=== PATIENT | male | born 1940 | race Caucasian/White ===

== ENCOUNTER → 2016-07-07 | Outpatient (CLI) | payer MEDICARE, MEDICAID ==
[~2016-07-07] MED LIST: /AMLO25TA PO; /CIPR75TA; /ESOM40CA; /LOR25TA PO; ACCO20TA4 PO; ACET-654 PO; ACET50TA PO; ACETAMINOPHEN OR; AMLO10TA2 PO; AMPI500C8 PO; ASPI81TA7 PO; ASPIRIN; AVODART; CIPR250T2 PO; CIPR500T19; COLA50CA3 PO; DOCU10ELUD PO; FERR325T PO; FERR325T3 PO; GLIP10TA6 PO; GLUC1000; HYDR-3713 PO; HYDROCODONE OR; ISON300T4 PO; ISOVUE-300 61% 50ML VIAL (Q9967) As Ordered ONE; LEVA250T PO; LEVA750T PO; LEVO125T3 PO; LEVO75TA PO; LIPI10TA PO; LISI10TA4; LORT5TAB PO; LOSA25TA8 PO; LOSA50TA20 PO; MOM30SS PO; NITROFURANTOIN (MACROBID) 100 MG CAP As Ordered ONE; ONGL10TA3 PO; PRAV40TA PO; PRIN10TA; PROC1INJ5 IM; RAPAFLO; RIFA300C3 PO; SAW PALMETTO; SERT-141 PO; SITA50TAB PO; SODIUM BICARBONATE 8.4% INJ 50MEQ 50 ML VIAL As Ordered ONE; SYNT25TA PO; TERA2CAP; TYLE325T5 PO; VITA100T; VITA250L PO; VITA500T3 PO; [UNRECOGNIZED DRUG - CODE] PO; [UNRECOGNIZED DRUG - CODE] PO; [UNRECOGNIZED DRUG - OTHER]; [UNRECOGNIZED DRUG - OTHER] PO; cyanocobalamin PO; vicodin
--- NOTE | 2016-07-07 12:50 | REPKIM ---
CLINICAL HISTORY: Patient with a history of genitourinary TB complication, s/p nephrectomy on the right, severe bladder contracture has a left nephrostomy urinary diversion tube. Patient c/o some pain or discomfort. No fever or chills. The nephrostomy catheter needs to be changed for routine maintenance. PROCEDURE: Left Nephrostomy Catheter Check and Change INTERVENTIONALIST: Vinh Livingston MD MEDICATIONS: Local Lidocaine, Macrobid EBL: 1 mL FLUORO TIME: 0.5 minutes CONTRAST: 10 mL Isovue 300 DEVICE USED: 10F Nephrostomy (Resolve) catheter Lot#[id number] Description of procedure: The risks, benefits, and alternatives of the procedure and associated intravenous sedation were discussed with the patient and informed written consent was obtained. The patient was brought to the interventional radiology suite where a timeout procedure was performed. The patient was placed in the prone position. The existing indwelling catheter and the area surrounding the insertion site were prepped and draped with standard technique. A sample of urine sent for c/s. Contrast was injected through the existing 10 F nephrostomy catheter and a nephrostogram was performed. This showed the catheter is patent with its tip in a satisfactory course and position. After local anesthetic was established, a guidewire was advanced through the existing drainage catheter into the renal pelvis. Catheter exchange was performed and a 10F nephrostomy catheter was then advanced over the guidewire. The guidewire was removed and the distal loop of the nephrostomy drainage catheter was formed and locked in the renal pelvis. Contrast was gently hand injected, confirming satisfactory drainage catheter positioning. The drainage catheter exit site was covered with a sterile dressing. The drainage catheter was flushed and connected to gravity drainage. The patient tolerated the procedure well with no immediate complications. This procedure was performed using fluoroscopy. Dr. Livingston was present. IMPRESSION: Successful left nephrostomy catheter change for maintenance as discussed above. cc: MD Kat Miller NP MTDD
== END | disposition home or self-care (01) ==
LOC: M IRPRO 09:56
DX: N32.89 Other specified disorders of bladder (principal)
CPT/HCPCS: 50435; 81001; 87088; 87186; C1729; C1769; Q9967

== ENCOUNTER → 2016-07-19 | Outpatient (REF) | payer MEDICARE, MEDICAID ==
[~2016-07-19] MED LIST changes: -ISOVUE-300 61% 50ML VIAL (Q9967) As Ordered ONE; -NITROFURANTOIN (MACROBID) 100 MG CAP As Ordered ONE; -SODIUM BICARBONATE 8.4% INJ 50MEQ 50 ML VIAL As Ordered ONE
[2016-07-19 12:16] LABS: ALBUMIN 3.4 GM/DL (3.2-5.2); ALKALINE PHOSPHATASE 77 U/L (45-117); ALT/SGPT 12 U/L (12-78); ANION GAP 12 MEQ/L (8-16); AST/SGOT 14 U/L (15-37); BILIRUBIN,TOTAL 0.6 MG/DL (0.2-1.0); BLOOD UREA NITROGEN 75 MG/DL (7-18); CALCIUM LEVEL 8.3 MG/DL (8.8-10.2); CARBON DIOXIDE LEVEL 21 MEQ/L (21-32); CHLORIDE LEVEL 105 MEQ/L (98-107); CHOLESTEROL LEVEL 112 MG/DL (<200); CREATININE FOR GFR 3.42 MG/DL (0.70-1.30); FREE T4 1.35 NG/DL (0.76-1.46); GLOMERULAR FILTRATION RATE 18.8 (>42); GLUCOSE, FASTING 315 MG/DL (83-110); POTASSIUM SERUM 4.5 MEQ/L (3.5-5.1); SODIUM LEVEL 138 MEQ/L (136-145); TOTAL PROTEIN 6.8 GM/DL (6.4-8.2); TRIGLYCERIDES LEVEL 188 MG/DL (<150)
== END ==
LOC: M SFHCPLAZ 09:22
PROVIDERS: ATTEND Nurse Practitioner Family
DX: E11.22 Type 2 diabetes mellitus with diabetic chronic kidney disease (principal); E03.9 Hypothyroidism, unspecified; E78.2 Mixed hyperlipidemia; Z12.5 Encounter for screening for malignant neoplasm of prostate
CPT/HCPCS: 36415; 80053; 80061; 82043; 83036; 84439; 84443; G0103

== ENCOUNTER 2016-08-30 11:47 | Emergency (ER) | payer MEDICARE, MEDICAID ==
[~2016-08-30] VITALS: Ht 172.7 cm; Wt 90.7 kg
[~2016-08-30 11:47] MED LIST changes: +SERT50TA PO
[2016-08-30] MEDS ORDERED: PROC1INJ2 (12:14)
[2016-08-30] MEDS ORDERED: HYDR12CA (12:14)
[2016-08-30] MEDS ORDERED: TOUJ1.2I (12:14)
[2016-08-30] MEDS ORDERED: BRIM1OPD (12:14)
[2016-08-30] MEDS ORDERED: BIMA01SOL (12:14)
[2016-08-30] MEDS ORDERED: CHLO125TA (12:14)
[2016-08-30] MEDS ORDERED: HYDR-4266 (12:14)
[2016-08-30] MEDS ORDERED: DOXA1TAB41 (12:14)
--- NOTE | 2016-08-30 13:54 | ED PDOC ---
Post-Departure Follow-Up PT AND GIRLFRIEND PRESENT TODAY COMPLAINING OF DECREASED URINE OUTPUT IN THE LEFT NEPHROSTOMY BAG YESTERDAY, WHICH INCREASED TODAY, BUT PT BEGAN URINATING OUT OF HIS PENIS YESTERDAY WITH URGENCY. STATES HE DOES NOT URINATE DUE TO KIDNEY FAILURE AND THE NEPHROSTOMY TUBE. PT STATES THIS TUBE GETS REPLACED EVERY MONTH BY DR. FRAGA, WHO IS CURRENTLY OUT OF THE OFFICE. SEES DR. ANTHONY FOR NEPHROLOGY, DR. SWANSON FOR UROLOGY AND DR. FORBES FOR INFECTIOUS DISEASE. PT STATES HAS HAD TB OF THE BLADDER AND WAS TREATED TO COMPLETION WITH DR. FORBES. HAD THE RIGHT KIDNEY REMOVED AND ONLY HAS THE LEFT KIDNEY WITH NEPHROSTOMY TUBE IN PLACE. GIRLFRIEND STATES PT REFUSED DIALYSIS, BUT HAS GOOD FOLLOW UP WITH HIS MANY SPECIALISTS. PT ALSO C/O PAIN IN THE GROIN OVER THE PAST 2 DAYS. MAIRA MEDRANO PA-C Aug 30, 2016 13:54
[2016-08-30 14:19] LABS: BASO % 0.4 % (0.0-1.0); EOS # 0.2 K/mm3 (0.0-0.50); EOS % 2.5 % (0.0-3.0); LARGE UNSTAINED CELL # 0.1 K/mm3 (0.0-0.4); LARGE UNSTAINED CELL % 1.4 % (0.0-4.0); LYMPH # 1.3 K/mm3 (1.5-4.5); LYMPH % 13.1 % (24.0-44.0); MEAN CORPUSCULAR HEMOGLOBIN 29.7 pg (27.0-33.0); MEAN CORPUSCULAR HGB CONC 32.3 g/dl (32.0-36.5); MONO # 0.5 K/mm3 (0.0-0.8); MONO % 5.5 % (0.0-5.0); NEUTROPHILS # 7.1 K/mm3 (1.8-7.7); NEUTROPHILS % 77.1 % (36.0-66.0); PLATELET COUNT, AUTOMATED 208 k/mm3 (150-450); RED CELL DISTRIBUTION WIDTH 13.9 % (11.5-14.5); WHITE BLOOD COUNT 9.2 K/mm3 (4.0-10.0)
--- NOTE | 2016-08-30 14:23 | REP ---
CT ABDOMEN PELVIS WITHOUT CONTRAST: 08/30/2016 COMPARISON: 10/17/2015, 02/04/2014 CT. CLINICAL HISTORY: Left nephrostomy tube, decreased urine output. FINDINGS: Noncontrast images of the abdomen and pelvis with coronal and sagittal reconstructions. CT ABDOMEN: Lung bases remain clear with some minor fibrotic change inferior lingular segment anterior left lung base. Heart mildly enlarged with left atrial ventricular enlargement. Coronary calcifications. No pericardial thickening or effusion. No definite hiatal hernia. Liver, spleen, adrenal glands and pancreas are without acute finding. Gallbladder shows an oval rim calcified gallstone 3.9 x 2.8 cm. No biliary dilatation in the liver or extrahepatic course. The aorta has atherosclerotic calcification without aneurysm. There is no periaortic other retroperitoneal pathologic sized lymphadenopathy. The patient has had a right nephrectomy. The right colon fills the right renal fossa. The left kidney shows a pigtail stent in the lower pole hernandez communicating to the extrarenal pelvis. There is hydronephrosis and hydroureter all the way to the left UVJ. AP extrarenal pelvis diameter 4.2 cm, now and in the September 2015 exam, 4.5 cm perinephric stranding noted similar the previous study. No definite stone in the collecting system or ureter on that left side. Small bowel loops are without abnormality. Nephrostomy tube appears intact without disruption. Lung window review shows no perforation or free air in the abdomen or pelvis on any slice. Degenerative changes in the lumbar and lower thoracic spine are mild with some hypertrophic facet change and no spondylolisthesis. There are marginal osteophytes at many levels particularly in the thoracic spine but no compression deformity. Visualized ribs intact. CT PELVIS: Sacrum, SI joints and the iliac bones intact. Bilateral hip joint arthritis, mild. No hip fracture. Pubic rami and symphysis pubis intact. Iliac arteries also show atherosclerotic calcifications on aneurysm. Small bowel loops intact. There is no ventral or inguinal hernia. The omental fat distends the right inguinal canal but no bowel herniation. No inguinal adenopathy or mass. Distal left colon, sigmoid and rectum with a few scattered diverticula without signs of diverticulitis or colitis. IMPRESSION: 1. Nephrostomy catheter in lower pole calyx left kidney with hydronephrosis and hydroureter to the level of the bladder. The AP diameter of the external pelvis is 4.5 cm. On the September 2015 CT, it was 4.2 cm. There is only marginally greater hydronephrosis and hydroureter. Whether the tube is partially occluded by debris is unknown. That would require nephrostogram injection. 2. Atherosclerotic calcifications of the aorta and branches, prior right nephrectomy and a 3.9 x 2.8 cm rim calcified gallstone visible. No other significant findings or interval change. Signed by Sidney Ag MD 08/30/2016 03:32 P
[2016-08-30 14:29] LABS: CALCIUM LEVEL 8.7 MG/DL (8.8-10.2); CREATININE FOR GFR 3.94 MG/DL (0.70-1.30); GLOMERULAR FILTRATION RATE 15.9 (>42); POTASSIUM SERUM 4.5 MEQ/L (3.5-5.1)
[2016-08-30] MEDS ORDERED: BACT800T5 PO (16:13)
[2016-08-30 16:29] VITALS: BP 156/65
== END 2016-08-30 16:30 | disposition home or self-care (01) ==
LOC: M ED 14:12
DX: N39.0 Urinary tract infection, site not specified (principal); N99.528 Other complication of incontinent external stoma of urinary tract; S50.852A Superficial foreign body of left forearm, initial encounter; X58.XXXA Exposure to other specified factors, initial encounter; Y92.89 Other specified places as the place of occurrence of the external cause; Y93.89 Activity, other specified; Y99.8 Other external cause status; E11.9 Type 2 diabetes mellitus without complications; I10 Essential (primary) hypertension; N19 Unspecified kidney failure; F33.9 Major depressive disorder, recurrent, unspecified; Z86.73 Personal history of transient ischemic attack (TIA), and cerebral infarction without residual deficits; F03.90 Unspecified dementia, unspecified severity, without behavioral disturbance, psychotic disturbance, mood disturbance, and anxiety; Z86.69 Personal history of other diseases of the nervous system and sense organs; Z79.899 Other long term (current) drug therapy; Z91.018 Allergy to other foods

== ENCOUNTER → 2016-10-02 | Outpatient (CLI) | payer MEDICARE, MEDICAID ==
[~2016-10-02] MED LIST changes: +BACT800T5 PO; +BIMA01SOL; +BRIM1OPD; +CHLO125TA; +CIPROFLOXACIN 500 MG TAB As Ordered ONE; +DOXA1TAB41; +HYDR-4266; +HYDR12CA; +ISOVUE-300 61% 50ML VIAL (Q9967) As Ordered ONE; +PROC1INJ2; +TOUJ1.2I
--- NOTE | 2016-10-02 17:29 | REPKIM ---
CLINICAL HISTORY: Patient with a history of genitourinary TB complication, s/p nephrectomy on the right, severe bladder contracture, renal insufficiency has a left nephrostomy urinary diversion tube. Patient presents because the left sided nephrostomy tube was inadvertently pulled out. PROCEDURE: Left Nephrostomy Catheter Replacement INTERVENTIONALIST: Vinh Livingston MD MEDICATIONS: Local Lidocaine, Cipro EBL: 1 mL FLUORO TIME: 0.7 minutes CONTRAST: 14 mL Isovue 300 DEVICE USED: 10F Nephrostomy (Resolve) catheter Lot#[id number] Description of procedure: The risks, benefits, and alternatives of the procedure and associated intravenous sedation were discussed with the patient and informed written consent was obtained. The patient was brought to the interventional radiology suite where a timeout procedure was performed. The patient was placed in the prone position. A Kumpe catheter was placed into the cutaneous tract. Contrast was injected. A tract into the collecting system was identified. The tract was successfully traversed with a guidewire and the Kumpe catheter advanced into the renal pelvis. Contrast injection showed hydronephrosis. Catheter exchange was performed and a 10F nephrostomy catheter was then advanced over the guidewire. The guidewire was removed and the distal loop of the nephrostomy drainage catheter was formed and locked in the renal pelvis. Contrast was gently hand injected, confirming satisfactory drainage catheter positioning. The drainage catheter exit site was covered with a sterile dressing. The drainage catheter was flushed and connected to gravity drainage. The patient tolerated the procedure well with no immediate complications. This procedure was performed using fluoroscopy. Dr. Livingston was present. IMPRESSION: Successful replacement of the left nephrostomy catheter as discussed above. cc: MD Kat Miller NP MTDD
== END | disposition home or self-care (01) ==
LOC: M IRPRO 14:11
DX: Z43.6 Encounter for attention to other artificial openings of urinary tract (principal); N28.9 Disorder of kidney and ureter, unspecified; N32.89 Other specified disorders of bladder
CPT/HCPCS: 50435; C1729; C1769; C1887; Q9967

== ENCOUNTER → 2016-11-30 | Outpatient (REF) | payer MEDICARE, MEDICAID ==
[~2016-11-30] MED LIST changes: -CIPROFLOXACIN 500 MG TAB As Ordered ONE; +HYDR-3910; -HYDR-4266; -ISOVUE-300 61% 50ML VIAL (Q9967) As Ordered ONE; +LEVA1TAB PO; -LEVA250T PO; -LEVA750T PO; +LEVA750T7 PO; -LEVO125T3 PO; +LEVO125T4 PO
[2016-11-30 18:57] LABS: BASO % 0.5 % (0.0-1.0); EOS # 0.2 K/mm3 (0.0-0.50); LARGE UNSTAINED CELL # 0.1 K/mm3 (0.0-0.4); LARGE UNSTAINED CELL % 1.4 % (0.0-4.0); LYMPH # 1.4 K/mm3 (1.5-4.5); MEAN CORPUSCULAR HEMOGLOBIN 30.2 pg (27.0-33.0); MEAN CORPUSCULAR HGB CONC 32.4 g/dl (32.0-36.5); MEAN CORPUSCULAR VOLUME 93.2 fl (80.0-96.0); MONO # 0.6 K/mm3 (0.0-0.8); MONO % 7.1 % (0.0-5.0); NEUTROPHILS # 5.9 K/mm3 (1.8-7.7); NEUTROPHILS % 72.1 % (36.0-66.0); PLATELET COUNT, AUTOMATED 213 k/mm3 (150-450); RED CELL DISTRIBUTION WIDTH 14.9 % (11.5-14.5); WHITE BLOOD COUNT 8.2 K/mm3 (4.0-10.0)
== END ==
LOC: M LAB REF 16:54
PROVIDERS: ATTEND Internal Medicine Nephrology
DX: N18.4 Chronic kidney disease, stage 4 (severe) (principal); D63.1 Anemia in chronic kidney disease

== ENCOUNTER → 2016-12-04 | Outpatient (CLI) | payer MEDICARE, MEDICAID ==
[~2016-12-04] MED LIST changes: +CIPROFLOXACIN 500 MG TAB As Ordered ONE; +ISOVUE-300 61% 50ML VIAL (Q9967) As Ordered ONE
--- NOTE | 2016-12-04 16:18 | REP ---
LEFT NEPHROSTOMY CATHETER REPLACEMENT: The procedure was performed under the direct supervision of Dr. Kim. The risks and benefits of the procedure were explained to the patient and informed consent was obtained. A 50/50 solution of Isovue-300 and sterile saline was injected into the catheter. Images demonstrate the pigtail to be in the renal pelvis. The 2-0 Prolene suture was released. A 0.035 guidewire was inserted into the existing 10 Icelandic resolve catheter. The catheter was removed over the guidewire. A new 10 Icelandic resolve catheter was inserted over the guidewire. The guidewire was then removed. Contrast was again injected and images demonstrate good catheter position. The pigtail of the catheter is located in the renal pelvis. The catheter was affixed to the skin using 2-0 Prolene suture. The catheter was connected to a gravity drainage bag. A total of 5 mL of Isovue-300 was utilized for this procedure. The patient tolerated the procedure well and there were no immediate complications. After the appropriate amount of monitored convalescence. The patient was discharged from the department. 0.9 minutes of fluoroscopic time was utilized for this procedure. Reviewed by FERDINAND Bran 12/04/2016 04:41 PEdited and Signed by David Kim MD 12/05/2016 04:00 P
== END | disposition home or self-care (01) ==
LOC: M RADPRO 09:58
PROVIDERS: ATTEND Radiology Diagnostic Radiology
DX: N32.89 Other specified disorders of bladder (principal); N18.4 Chronic kidney disease, stage 4 (severe); E11.22 Type 2 diabetes mellitus with diabetic chronic kidney disease; I12.9 Hypertensive chronic kidney disease with stage 1 through stage 4 chronic kidney disease, or unspecified chronic kidney disease; E78.5 Hyperlipidemia, unspecified; J45.909 Unspecified asthma, uncomplicated; D63.8 Anemia in other chronic diseases classified elsewhere; M19.90 Unspecified osteoarthritis, unspecified site; E03.9 Hypothyroidism, unspecified; N40.0 Benign prostatic hyperplasia without lower urinary tract symptoms; K21.9 Gastro-esophageal reflux disease without esophagitis; F33.9 Major depressive disorder, recurrent, unspecified; Z91.02 Food additives allergy status; Z79.4 Long term (current) use of insulin; Z79.899 Other long term (current) drug therapy
CPT/HCPCS: 50435; C1729; C1769; Q9967

== ENCOUNTER → 2016-12-28 | Outpatient (REF) | payer MEDICARE, MEDICAID ==
[~2016-12-28] MED LIST changes: -CIPROFLOXACIN 500 MG TAB As Ordered ONE; -ISOVUE-300 61% 50ML VIAL (Q9967) As Ordered ONE
[2016-12-28 17:40] LABS: BASO # 0.1 K/mm3 (0.0-0.2); EOS # 0.2 K/mm3 (0.0-0.50); EOS % 2.6 % (0.0-3.0); LARGE UNSTAINED CELL # 0.1 K/mm3 (0.0-0.4); LYMPH % 12.7 % (24.0-44.0); MEAN CORPUSCULAR HEMOGLOBIN 30.2 pg (27.0-33.0); MEAN CORPUSCULAR VOLUME 94.3 fl (80.0-96.0); MONO # 0.4 K/mm3 (0.0-0.8); MONO % 5.9 % (0.0-5.0); NEUTROPHILS # 5.6 K/mm3 (1.8-7.7); NEUTROPHILS % 76.8 % (36.0-66.0); PLATELET COUNT, AUTOMATED 195 k/mm3 (150-450); RED CELL DISTRIBUTION WIDTH 15.2 % (11.5-14.5); WHITE BLOOD COUNT 7.3 K/mm3 (4.0-10.0)
== END ==
LOC: M LAB REF 14:51
PROVIDERS: ATTEND Internal Medicine Nephrology
DX: N18.4 Chronic kidney disease, stage 4 (severe) (principal); D63.1 Anemia in chronic kidney disease

== ENCOUNTER → 2017-01-11 | Outpatient (REF) | payer MEDICARE, MEDICAID ==
[2017-01-11 18:49] LABS: MEAN CORPUSCULAR HEMOGLOBIN 30.8 pg (27.0-33.0); MEAN CORPUSCULAR HGB CONC 32.8 g/dl (32.0-36.5); MEAN CORPUSCULAR VOLUME 93.8 fl (80.0-96.0); RED CELL DISTRIBUTION WIDTH 14.5 % (11.5-14.5); WHITE BLOOD COUNT 8.8 K/mm3 (4.0-10.0)
[2017-01-11 19:07] LABS: ALBUMIN 3.5 GM/DL (3.2-5.2); BILIRUBIN,TOTAL 0.4 MG/DL (0.2-1.0); CALCIUM LEVEL 8.5 MG/DL (8.8-10.2); CREATININE FOR GFR 3.8 MG/DL (0.70-1.30); FREE T4 1.25 NG/DL (0.76-1.46); GLOMERULAR FILTRATION RATE 16.6 (>42)
== END ==
LOC: M SFHCPLAZ 15:57
PROVIDERS: ATTEND Urology
DX: I12.9 Hypertensive chronic kidney disease with stage 1 through stage 4 chronic kidney disease, or unspecified chronic kidney disease (principal); E11.22 Type 2 diabetes mellitus with diabetic chronic kidney disease; E03.9 Hypothyroidism, unspecified
CPT/HCPCS: 36415; 80053; 83036; 84439; 84443; 85027; G0463

== ENCOUNTER → 2017-01-15 | Outpatient (CLI) | payer MEDICARE, MEDICAID ==
[~2017-01-15] MED LIST changes: +CIPROFLOXACIN 500 MG TAB As Ordered ONE; +ISOVUE-300 61% 50ML VIAL (Q9967) As Ordered ONE; +LIDOCAINE 2% MDV 20 ML VIAL As Ordered ONE
--- NOTE | 2017-01-15 18:57 | REP ---
The procedure was performed under the direct supervision of Dr. Kim CLINICAL HISTORY: Severe contracted bladder/left hydronephrosis PROCEDURE: Left nephrostomy catheter placement Medications: Cipro 250 mg EBL: Less than 1 cc FLUORO TIME: 0.6 minutesCONTRAST: 6 ml Isovue 300DEVICE USED: 10 F Nephrostomy (Resolve) catheter Lot# [id number] The risks and benefits of the procedure were explained to the patient and informed consent was obtained. The patient was brought into the interventional radiology suite. A time of procedure was performed. The patient was placed in the prone position. The existing indwelling catheter and the area surrounding the insertion site were prepped and draped in a sterile fashion. Contrast was injected through the existing 10 F Nephrostomy catheter. Images demonstrate good catheter position. The existing catheter was unlocked and removed over the guide wire. A new 10 F Resolve catheter was advanced over the guide wire. The guidewire was removed and the distal loop of the nephrostomy drainage catheter was formed and locked in the renal pelvis. Contrast was injected, confirming satisfactory drainage catheter positioned. The catheter was secured to the skin using 2.0 silk suture. The drainage catheter exit site was covered with sterile dressing. The nephrostomy drainage catheter was flushed and connected to gravity drainage bag. The patient tolerated the procedure well and there were no immediate complications. This procedure was performed using fluoroscopy. Impression: Successful exchange of the left nephrostomy urinary diversion tube as discussed above. Plan: Routine catheter exchange in approximately 10-12 weeks or earlier if signs of tube dysfunction were to occur. Reviewed by FERDINAND Bran 01/15/2017 05:13 PSigned by David Kim MD 01/15/2017 06:48 P
== END ==
LOC: M RADPRO 11:33
PROVIDERS: ATTEND Radiology Diagnostic Radiology
DX: N13.30 Unspecified hydronephrosis (principal); N32.89 Other specified disorders of bladder; Z91.02 Food additives allergy status; Z79.899 Other long term (current) drug therapy
CPT/HCPCS: 50435; 75984; C1729; C1769; Q9967

== ENCOUNTER → 2017-01-25 | Outpatient (REF) | payer MEDICARE, MEDICAID ==
[~2017-01-25] MED LIST changes: -CIPROFLOXACIN 500 MG TAB As Ordered ONE; -ISOVUE-300 61% 50ML VIAL (Q9967) As Ordered ONE; -LIDOCAINE 2% MDV 20 ML VIAL As Ordered ONE
[2017-01-25 19:29] LABS: BASO # 0.1 K/mm3 (0.0-0.2); BASO % 0.9 % (0.0-1.0); EOS # 0.3 K/mm3 (0.0-0.50); EOS % 3.5 % (0.0-3.0); LARGE UNSTAINED CELL # 0.1 K/mm3 (0.0-0.4); LARGE UNSTAINED CELL % 1.1 % (0.0-4.0); LYMPH % 11.6 % (24.0-44.0); MEAN CORPUSCULAR HEMOGLOBIN 30.3 pg (27.0-33.0); MEAN CORPUSCULAR HGB CONC 31.7 g/dl (32.0-36.5); MEAN CORPUSCULAR VOLUME 95.4 fl (80.0-96.0); MONO # 0.5 K/mm3 (0.0-0.8); MONO % 6.6 % (0.0-5.0); NEUTROPHILS # 5.8 K/mm3 (1.8-7.7); NEUTROPHILS % 76.2 % (36.0-66.0); PLATELET COUNT, AUTOMATED 200 k/mm3 (150-450); RED CELL DISTRIBUTION WIDTH 14.5 % (11.5-14.5); WHITE BLOOD COUNT 7.6 K/mm3 (4.0-10.0)
== END ==
LOC: M LAB REF 12:25
PROVIDERS: ATTEND Internal Medicine Nephrology
DX: N18.4 Chronic kidney disease, stage 4 (severe) (principal); D63.1 Anemia in chronic kidney disease

== ENCOUNTER → 2017-02-22 | Outpatient (REF) | payer MEDICARE, MEDICAID ==
[2017-02-22 20:03] LABS: MEAN CORPUSCULAR HEMOGLOBIN 30.5 pg (27.0-33.0); MEAN CORPUSCULAR HGB CONC 32.7 g/dl (32.0-36.5); MEAN CORPUSCULAR VOLUME 93.3 fl (80.0-96.0); RED CELL DISTRIBUTION WIDTH 14.2 % (11.5-14.5); WHITE BLOOD COUNT 8.5 10^3/uL (4.0-10.0)
== END ==
LOC: M LAB REF 17:31
PROVIDERS: ATTEND Internal Medicine Nephrology
DX: N18.4 Chronic kidney disease, stage 4 (severe) (principal); D63.1 Anemia in chronic kidney disease; Z90.5 Acquired absence of kidney

== ENCOUNTER → 2017-03-29 | Outpatient (REF) | payer MEDICARE, MEDICAID ==
[2017-03-29 19:03] LABS: PERCENT SATURATION 33.9 % (19.7-50.0)
== END ==
LOC: M LAB REF 17:16
PROVIDERS: ATTEND Internal Medicine Nephrology
DX: N18.4 Chronic kidney disease, stage 4 (severe) (principal); D64.9 Anemia, unspecified; Z90.5 Acquired absence of kidney

== ENCOUNTER 2017-05-09 23:50 | Inpatient (IN) | payer MEDICARE, MEDICAID ==
[~2017-05-09] VITALS: Ht 172.7 cm; Wt 97.1 kg
[~2017-05-09 23:50] MED LIST changes: -HYDR12CA; +HYDR12CA PO
[2017-05-10] VITALS (8 sets, daily range): BP systolic 120–210; BP diastolic 60–95
[2017-05-10] MEDS ORDERED: hydrALAZINE INJ 20 MG/ML VIAL IV ONE (00:30)
[2017-05-10 00:34] LABS: BASO # 0.1 10^3/uL (0.0-0.2); BASO % 1.3 % (0.0-1.0); EOS # 0.6 10^3/uL (0.0-0.50); EOS % 7.7 % (0.0-3.0); IMMATURE GRANULOCYTE % 2.3 % (0-0); LYMPH # 1.4 10^3/uL (1.5-4.5); LYMPH % 16.6 % (24.0-44.0); MEAN CORPUSCULAR HEMOGLOBIN 29.6 pg (27.0-33.0); MEAN CORPUSCULAR HGB CONC 33.2 g/dl (32.0-36.5); MONO # 0.9 10^3/uL (0.0-0.8); MONO % 10.6 % (0.0-5.0); NEUTROPHILS % 61.5 % (36.0-66.0); PLATELET COUNT, AUTOMATED 196 10^3/uL (150-450); RED CELL DISTRIBUTION WIDTH 13.4 % (11.5-14.5); WHITE BLOOD COUNT 8.2 10^3/uL (4.0-10.0)
[2017-05-10 00:51] LABS: CALCIUM LEVEL 8.1 MG/DL (8.8-10.2); CREATININE FOR GFR 3.45 MG/DL (0.70-1.30); FREE T4 0.77 NG/DL (0.76-1.46); GLOMERULAR FILTRATION RATE 18.5 (>42); POTASSIUM SERUM 4.2 MEQ/L (3.5-5.1)
[2017-05-10] MEDS ORDERED: HumuLIN R (REGULAR) INSULIN (NovoLIN R) **100U/ML** PER UNIT IV ONE (01:15)
[2017-05-10] MEDS ORDERED: TUMS500C PO (01:43)
[2017-05-10] MEDS ORDERED: HYDR100T PO (01:43)
[2017-05-10] MEDS ORDERED: amLODIPine 5 MG TAB PO ONE (02:30)
[2017-05-10] MEDS ORDERED: ONDANSETRON 4MG/2ML VIAL (J2405) IV PRN (05:15)
[2017-05-10] MEDS ORDERED: GLUCAGON FOR INJ 1 MG VIAL (J1610) SC PRN (05:30)
[2017-05-10] MEDS ORDERED: GLUCOSE 4 GM CHEW TABLET PO PRN (05:30)
[2017-05-10] MEDS ORDERED: DEXTROSE 50% 50 ML SYRINGE IV PRN (05:30)
[2017-05-10] MEDS ORDERED: NITROGLYCERIN 2% OINT 1 GM *U/D* PKT TOP ONE (05:30)
--- NOTE | 2017-05-10 05:59 | ECGEPIP ---
Stationary ECG Study [facility] - ED Test Date: 2017-05-10 Pat Name: RACHEL JACKSON Department: Room: - Gender: M Copy Technician: josh : 1940 Requested By: ARMOND Sousa Order Number: [id number] Reading MD: Antony Resendiz Measurements Intervals [place] Rate: 57 P: 27 MD: 156 QRS: -53 QRSD: 129 T: -31 QT: 418 QTc: 407 Interpretive Statements SINUS BRADYCARDIA WITH SINUS ARRHYTHMIA LEFT ANTERIOR FASCICULAR BLOCK MODERATE VOLTAGE CRITERIA FOR LVH, CONSIDER NORMAL VARIANT NONSPECIFIC T-WAVE ABNORMALITY SIMILAR TO 01/05/15 Electronically Signed On 05-10-2017 5:59:20 EST by Antony Resendiz
[2017-05-10] MEDS: LEVOTHYROXINE 150MCG TABLET (0.15MG) PO SCH (06:00)
--- NOTE | 2017-05-10 06:03 | ECGEPIP ---
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
[2017-05-10] MEDS ORDERED: TOUJ1.2I SC ×2 (06:04→06:05)
[2017-05-10] MEDS ORDERED: ASPI1TAB15 PO (06:04)
[2017-05-10] MEDS ORDERED: SERT-138 PO (06:04)
[2017-05-10] MEDS ORDERED: SYNT150T PO (06:04)
[2017-05-10] MEDS ORDERED: GLIP1TAB51 PO (06:04)
[2017-05-10] MEDS ORDERED: HYDR-3910 PO (06:04)
[2017-05-10] MEDS ORDERED: PATIENT COMMENT (06:06)
[2017-05-10 08:19] LABS: MEAN CORPUSCULAR HEMOGLOBIN 28.8 pg (27.0-33.0); MEAN CORPUSCULAR HGB CONC 32.7 g/dl (32.0-36.5); MEAN CORPUSCULAR VOLUME 88.1 fl (80.0-96.0); PLATELET COUNT, AUTOMATED 184 10^3/uL (150-450); RED CELL DISTRIBUTION WIDTH 13.6 % (11.5-14.5); WHITE BLOOD COUNT 9.1 10^3/uL (4.0-10.0)
[2017-05-10] MEDS: HEPARIN SOD (PORCINE) 5000 UNITS/ML VIAL SQ SCH ×2 (08:22→20:11)
[2017-05-10] MEDS: HumaLOG INSULIN (NovoLOG) PER UNIT SC SCH ×3 (08:23→16:59)
[2017-05-10 08:53] LABS: ALBUMIN 3.1 GM/DL (3.2-5.2); ALBUMIN/GLOBULIN RATIO 0.78 (1.00-1.93); BILIRUBIN,TOTAL 0.3 MG/DL (0.2-1.0); CALCIUM LEVEL 8.8 MG/DL (8.8-10.2); CREATININE FOR GFR 3.48 MG/DL (0.70-1.30); GLOMERULAR FILTRATION RATE 18.3 (>42); POTASSIUM SERUM 4.3 MEQ/L (3.5-5.1); TOTAL PROTEIN 7.1 GM/DL (6.4-8.2)
[2017-05-10] MEDS ORDERED: ENOXAPARIN 30 MG/0.3 ML SYR (J1650) SC SCH (09:00)
--- NOTE | 2017-05-10 09:16 | HPE ---
DATE OF ADMISSION: 05/10/2017 This is patient of Kat Andrews NP, Dr. Flores and Dr. Lee. Chief complaint is chest pain. SUMMARY OF HISTORY OF PRESENTATION: This is a 76-year-old gentleman who was at rest this evening and had sudden onset of chest pain. It was left-sided pressure-like with radiation to his arms. 911 was called. He was found to be in atrial fibrillation with rapid ventricular response (RVR). He had sensation of palpitation that looks from there initial readings between 130-140. He was brought to the hospital for an evaluation. He had been given beta-blockade, aspirin in route, as well as nitro. Rate was controlled and it was just though he converted to bradyarrhythmia, which looks to be junctional. Currently, he is without pain, chest pain, shortness of breath. He is noted to be hypertensive in the emergency department and troponins were elevated minimally. I was called to admit on behalf of the family medicine service. Past medical history is notable for type 2 diabetes, tuberculosis, asthma, anemia of chronic disease, chronic kidney disease stage IV, hypertension, hypogonadism, hyperlipidemia, depression, gastroesophageal reflux disease (GERD), arthritis, diverticulosis, hemorrhoids, right shoulder pain, osteoarthritis, fracture of left wrist, bilateral hydronephrosis, hydroureter, pulmonary nodules, hypothyroidism, BPH. Surgical history is notable for some sort of face surgery, removal of testicle, esophagogastroduodenoscopy (EGD), colonoscopy, bladder biopsy, left wrist surgery, urinary stents, exploratory lap, various urologic surgeries including a right nephrectomy in 2014. He has an ALLERGY to RED DYE. Family history is notable for both parents who are . 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 Medications at home are listed as: - Norvasc - atorvastatin - Alphagan P - calcium carbonate - vitamin B12 - ferrous sulfate - glipizide - hydralazine - hydrochlorothiazide - Synthroid - Zoloft - Lumigan - Procrit - saxagliptin - Toujeo SoloStar Review of systems is somewhat limited in this patient. No headache. No visual changes. No runny nose. No sore throat. No neck pain. No cough. He is not describing shortness of breath. He has seen a coreroom foundry laborer for it, does not know who, does not know if he has had a stress test. No abdominal pain. No focal weakness. Otherwise, unremarkable, but again, he is a poor historian. On physical exam, temperature is 98.2, pulse 63, respiratory rate 24, blood pressure 176/72, 94% on room air. He is awake, appropriately interactive, pleasant, easily conversant. Head is normocephalic. Sinus nontender. Pupils equal, round, and reactive. Nasal septum is midline. Mucous membranes moist. Neck supple. thick. Breathing is symmetrical, rested. I:E ratio is 1:3. No wheezes, rales or rhonchi. No costovertebral angle (CVA) tenderness. No sacral edema. Heart is distant sounding, normal S1, S2, is bradycardic. I appreciate no murmur, rub or gallop. Radial pulses 2+. Capillary refill is less than 2 seconds. Abdomen is soft, doughy, nontender. There is no significant lower extremity edema. He is moving all four extremities. Cranial nerves II-XII are grossly intact. He has normal mood and affect. White cell count 8.2, hemoglobin 9.7, platelets 196. BUN 52, creatinine 3.45, which is near his baseline. Glucose is 425. CK 86, repeat is 88. Troponin I 0.04, which repeat is 0.40. TSH within normal limits. Chest x-ray appears to be am expiratory film with a globular heart. EKG shows junctional rhythm that is bradycardic. My assessment is as follows: This is a 76-year-old with new onset atrial fibrillation with rapid ventricular response resulting in chest pain and elevated troponin. Patient will be admitted for a two midnight hospital stay under the family medicine service. Plan will be as follows: 1. Cardiovascular. The patient is hypertensive with elevated troponin, new onset atrial fibrillation with RVR. Rate is currently controlled. I will defer anticoagulation to the morning team in 2 hours and defer to them whether or not cardiology consult is warranted. It would appear to me that his elevated troponin is from demand ischemia. Would recommend continuing to cycle troponins. I have ordered a repeat EKG. Can likely just continue his home blood pressure medications at this point. 2. Patient has type 2 diabetes. Insulin has been ordered. We do not have Toujeo, will order Levemir for long-acting insulin. 3. Patient has anemia of chronic disease. 4. Patient has chronic kidney disease, stage IV. Appears at baseline. No role for a renal consult. He does have solitary kidney. 5. Deep venous thrombosis (DVT) prophylaxis is ordered.
--- NOTE | 2017-05-10 10:28 | IPNPDOC ---
Subjective Date Seen The patient was seen on 05/10/17. Subjective Chief Complaint/HPI The patient is a 76-year-old male admitted with a reason for visit of Atrial Fibrillation With Rvr. Constitutional: Denies: Chills, Malaise Cardiovascular: Denies: Chest Pain, Palpitations, Orthopnea Gastrointestinal: Denies: Nausea Objective Physical Examination General Exam: Positive: Alert ENT Exam: Positive: Atraumatic Neck Exam: Positive: Supple Chest Exam: Positive: Clear to auscultation Heart Exam: Positive: Bradycardic, Regular Rhythm Abdomen Exam: Positive: Normal bowel sounds Extremity Exam: Negative: Clubbing, Cyanosis Skin Exam: Positive: Nl turgor and temperature, Negative: Rash Assessment /Plan Problems (1) Paroxysmal atrial fibrillation with rapid ventricular response Status: Acute Response to Treatment: Improving Problem Text: returned to [facility] with catherine. chest pain resolved troponin up a little, likely due to rate related strain (2) Anemia in chronic kidney disease (CKD) Status: Chronic Problem Text: hasn't started EPO therapy. (3) Diabetes mellitus Status: Chronic Response to Treatment: Stable Problem Text: resume glipizide. hold onglyza for now; continue SS Novolog (4) Hypertension Status: Chronic Response to Treatment: Improving Problem Text: will resume usual outpatient meds except change hydralazine to 50 tid rather than 75 bid (5) Chronic kidney disease, stage 4 (severe) Status: Chronic Response to Treatment: Stable Problem Text: has declined hemodialysis in the past. Plan/VTE VTE Prophylaxis Ordered?: Yes Plan Anticipated Discharge: Home VS, I&O, 24H, [facility] Vital Signs/I&O Vital Signs Date Time Temp Pulse Resp B/P (MAP) Pulse Ox O2 Delivery O2 Flow Rate FiO2 05/10/17 08:01 98.3 56 18 162/74 (103) 95 Room Air I&O- Last 24 Hours up to 6 AM 05/10/17 06:00 Output Total 500 ml Balance -500 ml Laboratory Data 24H LABS Laboratory Tests 2 05/10/17 00:13: Immature Granulocyte % (Auto) 2.3H, White Blood Count 8.2, Red Blood Count 3.28L , Hemoglobin 9.7L, Hematocrit 29.2L, Mean Corpuscular Volume 89.0, Mean Corpuscular Hemoglobin 29.6, Mean Corpuscular Hemoglobin Concent 33.2, Red Cell Distribution Width 13.4, Platelet Count 196, Neutrophils (%) (Auto) 61.5, Lymphocytes (%) (Auto) 16.6L, Monocytes (%) (Auto) 10.6H, Eosinophils (%) (Auto ) 7.7H, Basophils (%) (Auto) 1.3H, Neutrophils # (Auto) 5.0, Lymphocytes # (Auto ) 1.4L, Monocytes # (Auto) 0.9H, Eosinophils # (Auto) 0.6H, Basophils # (Auto) 0.1, Immature Granulocyte # (Auto) 0.2H, Nucleated Red Blood Cells % (auto) 0.0 , Anion Gap 9, Glomerular Filtration Rate 18.5L, Blood Urea Nitrogen 52H, Creatinine 3.45H, Sodium Level 140, Potassium Level 4.2, Chloride Level 110H, Carbon Dioxide Level 21, Calcium Level 8.1L, Total Creatine Kinase 86, Creatine Kinase MB 2.5, Creatine Kinase MB Relative Index 2.90, Troponin I 0.04, Thyroid Stimulating Hormone (TSH) 2.650, Free Thyroxine 0.77 05/10/17 02:40: Bedside Glucose (Misc Panel) 204H 05/10/17 03:57: Total Creatine Kinase 88, Creatine Kinase MB 3.3, Creatine Kinase MB Relative Index 3.75, Troponin I 0.40#H 05/10/17 07:57: Bedside Glucose (Misc Panel) 207H 05/10/17 08:06: Nucleated Red Blood Cells % (auto) 0.0, Anion Gap 11, Glomerular Filtration Rate 18.3L, Blood Urea Nitrogen 53H, Creatinine 3.48H, Sodium Level 142, Potassium Level 4.3, Chloride Level 110H, Carbon Dioxide Level 21, Calcium Level 8.8, Aspartate Amino Transf (AST/SGOT) 14, Alanine Aminotransferase (ALT/ SGPT) 15, Total Creatine Kinase 97, Alkaline Phosphatase 77, Total Bilirubin 0.3 , Total Protein 7.1, Albumin 3.1L, Creatine Kinase MB 4.1H, Creatine Kinase MB Relative Index 4.22H, Troponin I 0.65#H, Albumin/Globulin Ratio 0.78L CBC/BMP Laboratory Tests 05/10/17 00:13 Red Blood Count 3.28 L, Mean Corpuscular Volume 89.0, Mean Corpuscular Hemoglobin 29.6, Mean Corpuscular Hemoglobin Concent 33.2, Red Cell Distribution Width 13.4, Neutrophils (%) (Auto) 61.5, Lymphocytes (%) (Auto) 16.6 L, Monocytes (%) (Auto) 10.6 H, Eosinophils (%) (Auto) 7.7 H, Basophils (% ) (Auto) 1.3 H, Neutrophils # (Auto) 5.0, Lymphocytes # (Auto) 1.4 L, Monocytes # (Auto) 0.9 H, Eosinophils # (Auto) 0.6 H, Basophils # (Auto) 0.1, Calcium Level 8.1 L, Total Creatine Kinase 86 05/10/17 08:06 Red Blood Count 3.12 L, Mean Corpuscular Volume 88.1, Mean Corpuscular Hemoglobin 28.8, Mean Corpuscular Hemoglobin Concent 32.7, Red Cell Distribution Width 13.6, Calcium Level 8.8, Total Creatine Kinase 97, Aspartate Amino Transf (AST/SGOT) 14, Alanine Aminotransferase (ALT/SGPT) 15, Alkaline Phosphatase 77, Total Bilirubin 0.3, Total Protein 7.1, Albumin 3.1 L Griffin Jones MD May 10, 2017 10:28
[2017-05-10] MEDS: hydroCHLOROthiazide 25 MG TAB PO SCH (11:45)
[2017-05-10] MEDS: amLODIPine 10 MG TAB PO SCH (11:46)
[2017-05-10] MEDS ORDERED: **hydrALAZINE** 50 MG TAB PO SCH (14:00)
[2017-05-10] MEDS: glipiZIDE XL 5 MG TABCR PO SCH (15:11)
[2017-05-10] MEDS: ACETAMINOPHEN TAB 650MG DOSE (2X325MG) PO PRN ×2 (17:00→20:14)
--- NOTE | 2017-05-10 19:01 | ECGEPIP ---
Stationary ECG Study [facility] Test Date: 2017-05-10 Pat Name: RACHEL JACKSON Department: Room: I1044-76 Gender: M Map Plotter: GET : 1940 Requested By: HERNÁN Spangler Order Number: [id number] Reading MD: Hernán Farrell Measurements Intervals [place] Rate: 56 P: 33 [place]: 147 QRS: -56 QRSD: 122 T: -38 QT: 437 QTc: 424 Interpretive Statements SINUS BRADYCARDIA LEFT ANTERIOR FASCICULAR BLOCK MINIMAL VOLTAGE CRITERIA FOR LVH, CONSIDER NORMAL VARIANT NONSPECIFIC T-WAVE ABNORMALITY Similar to tracing done 3 hours earlier Electronically Signed On 05-10-2017 19:00:59 EST by Hernán Farrell
[2017-05-10] MEDS: **hydrALAZINE** 50 MG TAB PO SCH (20:13)
[2017-05-10] MEDS ORDERED: HumaLOG INSULIN (NovoLOG) PER UNIT SC SCH (21:00)
[2017-05-11 04:00] VITALS: BP 148/78
[2017-05-11 05:40] LABS: MEAN CORPUSCULAR HEMOGLOBIN 29.2 pg (27.0-33.0); MEAN CORPUSCULAR VOLUME 88.5 fl (80.0-96.0); PLATELET COUNT, AUTOMATED 180 10^3/uL (150-450); RED CELL DISTRIBUTION WIDTH 13.3 % (11.5-14.5); WHITE BLOOD COUNT 8.7 10^3/uL (4.0-10.0)
[2017-05-11 06:07] LABS: CALCIUM LEVEL 8.3 MG/DL (8.8-10.2); CREATININE FOR GFR 3.59 MG/DL (0.70-1.30); GLOMERULAR FILTRATION RATE 17.7 (>42); MAGNESIUM LEVEL 1.5 MG/DL (1.8-2.4); POTASSIUM SERUM 4.6 MEQ/L (3.5-5.1)
[2017-05-11] MEDS: LEVOTHYROXINE 150MCG TABLET (0.15MG) PO SCH (06:52)
[2017-05-11] MEDS: HumaLOG INSULIN (NovoLOG) PER UNIT SC SCH ×2 (07:53→12:21)
[2017-05-11 08:00] VITALS: BP 178/82
[2017-05-11] MEDS: HEPARIN SOD (PORCINE) 5000 UNITS/ML VIAL SQ SCH (09:26)
[2017-05-11] MEDS: hydroCHLOROthiazide 25 MG TAB PO SCH (09:26)
[2017-05-11 09:27] VITALS: BP 178/82
[2017-05-11] MEDS: glipiZIDE XL 5 MG TABCR PO SCH (09:27)
[2017-05-11] MEDS: **hydrALAZINE** 50 MG TAB PO SCH (09:27)
[2017-05-11] MEDS: amLODIPine 10 MG TAB PO SCH (09:28)
[2017-05-11] MEDS ORDERED: HYDR50TA PO (11:58)
[2017-05-11] MEDS ORDERED: HYDR25TAB PO (11:58)
--- NOTE | 2017-05-12 08:45 | REP ---
Clinical: Acute chest pain. Comparison: 01/05/2015. Technique: AP and lateral. Findings: The cardiac silhouette suggests cardiomegaly. The mediastinum is otherwise normal. Chronic interstitial changes are appreciated without focal consolidation, obvious effusion, or pneumothorax. The skeletal structures are intact and normal. Impression: Chronic appearing interstitial changes. No acute cardiopulmonary process. Signed by London Medina MD 05/12/2017 08:36 A
[2017-05-12] MEDS ORDERED: INFLUENZA VIRUS VACCINE HIGH DOSE 0.5 ML SYRINGE (90662) IM ONE (09:00)
--- NOTE | 2017-05-15 15:00 | DSES ---
DATE OF ADMISSION: 05/10/2017 DATE OF DISCHARGE: 05/11/2017 REASON FOR ADMISSION: Mr. Clark was admitted to the ED after presenting with atrial fibrillation with rapid ventricular response and high blood pressure. He has stage IV chronic kidney disease and has refused. He is on multiple medications for blood pressure control. He tends to have a [place] bradycardia with heart rate around 55-60 typically, limiting medication options for chronic maintenance of blood pressure control and effective rate control. Fortunately almost immediately after presenting, he converted spontaneously to sinus rhythm and has remained in sinus rhythm throughout his brief hospital stay. Blood pressure meds were changed somewhat. Hydrochlorothiazide was increased to 25 mg, hydralazine was increased to 100 mg twice a day, to try to provide better pressure control. He may need further adjustment of this dose. He continues on his other routine meds. CONDITION ON DISCHARGE: He is alert, mildly dyspneic with exertion. Heart rhythm is regular, bradycardic. Blood pressure control had improved until morning when he became somewhat agitated, demanding to be discharge and threatening to leave against medical advice. His blood pressure overnight was 120/60, 160/70, 148/78 and then darin to 178/82 this a.m. ASSESSMENT: Paroxysmal atrial fibrillation with rapid ventricular response. Hypertension. Chronic kidney disease stage IV. Status post left nephrostomy. Anemia of chronic disease secondary to chronic kidney disease. Type 2 diabetes mellitus. PLAN: The patient will resume his usual medications with the following changes: - hydrochlorothiazide increased to 225 mg - hydralazine increased to 100 mg p.o. b.i.d. - Continue his renal diet. - Activity as tolerated. - Continue amlodipine 10 mg daily - atorvastatin 80 mg daily - vitamin B12 500 mcg daily - iron 325 daily - glipizide extended release 10 mg b.i.d. - levothyroxine 150 mcg daily - Onglyza 2.5 mg daily - sertraline 100 mg daily - Toujeo 10 units subcu q.p.m. - aspirin 81 mg daily. Note that he was not discharged on anticoagulants other than the aspirin. I will leave this topic for discussion with his primary care physician to decide if he is a candidate for such therapy. He has multiple risk factors but cost and adherence may be concerns and again this was a single relatively brief episode. Cardiology consultation was not obtained during this hospital stay, but would be a reasonable though if the patient would permit after discharge. Encouraged activity as tolerated. Continue renal diet as noted. Followup with primary care physician, which the patient states is Dr. Hand, in 7-14 days.
== END 2017-05-11 13:15 | disposition home health service (06) | DRG 309 ==
LOC: M ED 23:50 → EDBD 23:50 → M ED INP 05-10 05:11 → M PCU 05-10 06:53
PROVIDERS: ADMIT Internal Medicine; ATTEND Family Medicine
DX: I48.0 Paroxysmal atrial fibrillation (principal); N18.4 Chronic kidney disease, stage 4 (severe); I13.10 Hypertensive heart and chronic kidney disease without heart failure, with stage 1 through stage 4 chronic kidney disease, or unspecified chronic kidney disease; E11.9 Type 2 diabetes mellitus without complications; D63.1 Anemia in chronic kidney disease; E78.5 Hyperlipidemia, unspecified; E03.9 Hypothyroidism, unspecified; Z90.5 Acquired absence of kidney; Z96.0 Presence of urogenital implants; Z91.048 Other nonmedicinal substance allergy status; Z79.4 Long term (current) use of insulin; Z79.899 Other long term (current) drug therapy; Z79.82 Long term (current) use of aspirin

== ENCOUNTER → 2017-06-11 | Outpatient (REF) | payer MEDICARE, MEDICAID ==
[2017-06-11 12:55] LABS: HEMATOCRIT 24.9 % (42.0-52.0); HEMOGLOBIN 8.2 g/dl (14.0-18.0); MEAN CORPUSCULAR HEMOGLOBIN 29.9 pg (27.0-33.0); MEAN CORPUSCULAR HGB CONC 32.9 g/dl (32.0-36.5); MEAN CORPUSCULAR VOLUME 90.9 fl (80.0-96.0); PLATELET COUNT, AUTOMATED 185 10^3/uL (150-450); RED BLOOD COUNT 2.74 10^6/uL (4.30-6.10); RED CELL DISTRIBUTION WIDTH 13.2 % (11.5-14.5); WHITE BLOOD COUNT 7.9 10^3/uL (4.0-10.0)
== END ==
LOC: M LAB REF 12:06
DX: D64.9 Anemia, unspecified (principal); N18.4 Chronic kidney disease, stage 4 (severe); Z90.5 Acquired absence of kidney
CPT/HCPCS: 85027

== ENCOUNTER → 2017-07-10 | Outpatient (REF) | payer MEDICARE, OTHER, MEDICAID ==
[2017-07-10 19:46] LABS: HEMATOCRIT 25.2 % (42.0-52.0); HEMOGLOBIN 8.2 g/dl (14.0-18.0); MEAN CORPUSCULAR HEMOGLOBIN 29.7 pg (27.0-33.0); MEAN CORPUSCULAR HGB CONC 32.5 g/dl (32.0-36.5); MEAN CORPUSCULAR VOLUME 91.3 fl (80.0-96.0); PLATELET COUNT, AUTOMATED 205 10^3/uL (150-450); RED BLOOD COUNT 2.76 10^6/uL (4.30-6.10); RED CELL DISTRIBUTION WIDTH 13.1 % (11.5-14.5); WHITE BLOOD COUNT 7.7 10^3/uL (4.0-10.0)
== END ==
LOC: M LAB REF 17:30
DX: N18.4 Chronic kidney disease, stage 4 (severe) (principal); Z90.5 Acquired absence of kidney; D63.1 Anemia in chronic kidney disease
CPT/HCPCS: 85027

== ENCOUNTER 2017-07-15 21:09 | Emergency (ER) | payer MEDICARE, OTHER, MEDICAID ==
[2017-07-15] MEDS: CLOPIDOGREL 300 MG TAB (PLAVIX) PO ×2 (21:53)
[2017-07-15] MEDS: NITROGLYCERIN 2% OINT 1 GM *U/D* PKT TOP ×2 (21:54)
[2017-07-15 22:00] LABS: BASO % 0.3 % (0.0-1.0); EOS % 0.1 % (0.0-3.0); HEMATOCRIT 23.3 % (42.0-52.0); HEMOGLOBIN 7.8 g/dl (14.0-18.0); LYMPH % 1.6 % (24.0-44.0); MEAN CORPUSCULAR HEMOGLOBIN 30.1 pg (27.0-33.0); MEAN CORPUSCULAR HGB CONC 33.5 g/dl (32.0-36.5); MONO # 1.1 10^3/uL (0.0-0.8); MONO % 7.6 % (0.0-5.0); NEUTROPHILS # 13.2 10^3/uL (1.8-7.7); NEUTROPHILS % 89.4 % (36.0-66.0); PLATELET COUNT, AUTOMATED 160 10^3/uL (150-450); RED BLOOD COUNT 2.59 10^6/uL (4.30-6.10); RED CELL DISTRIBUTION WIDTH 13.1 % (11.5-14.5); WHITE BLOOD COUNT 14.7 10^3/uL (4.0-10.0)
[2017-07-15 22:10] LABS: INR 1.02; PROTHROMBIN TIME 13.5 SECONDS (12.4-14.5)
[2017-07-15 22:11] LABS: PARTIAL THROMBOPLASTIN TIME 27.9 SECONDS (26.8-37.9)
[2017-07-15 22:28] LABS: ABG BASE EXCESS -6.8 (-2.0-2.0); ABG HCO3 19.6 MEQ/L (22.0-26.0); ABG PARTIAL PRESSURE CO2 43.2 mmHg (35.0-45.0); ABG PARTIAL PRESSURE O2 29.2 mmHg (75.0-100.0); ABG TOTAL CO2 20.9 MEQ/L (23.0-31.0); ABG pH (ARTERIAL) 7.275 UNITS (7.350-7.450)
[2017-07-15 22:29] LABS: ABG O2 SATURATION 54.6 % (95.0-99.0); ABG STANDARD HCO3 18.3 MEQ/L (22.0-26.0)
[2017-07-15 22:33] LABS: LYMPH # 0.2 10^3/uL (1.5-4.5); POSITIVE DIFF POS FLAG
[2017-07-15 22:36] LABS: NT-PRO BNP 8405 PG/ML (<450)
[2017-07-15 22:39] LABS: ALBUMIN 2.9 GM/DL (3.2-5.2); ALBUMIN/GLOBULIN RATIO 0.83 (1.00-1.93); ALKALINE PHOSPHATASE 62 U/L (45-117); ALT/SGPT 13 U/L (12-78); ANION GAP 11 MEQ/L (8-16); AST/SGOT 22 U/L (7-37); BILIRUBIN,DIRECT 0.1 MG/DL (0.0-0.2); BILIRUBIN,TOTAL 0.4 MG/DL (0.2-1.0); BLOOD UREA NITROGEN 51 MG/DL (7-18); CALCIUM LEVEL 8.5 MG/DL (8.8-10.2); CARBON DIOXIDE LEVEL 18 MEQ/L (21-32); CHLORIDE LEVEL 108 MEQ/L (98-107); CPK CREATINE PHOSPHOKINASE 226 U/L (39-308); CREATININE FOR GFR 3.64 MG/DL (0.70-1.30); FREE T4 0.85 NG/DL (0.76-1.46); GLOMERULAR FILTRATION RATE 17.4 (>42); GLUCOSE, FASTING 288 MG/DL (70-100); LIPASE 95 U/L (73-393); POTASSIUM SERUM 4.4 MEQ/L (3.5-5.1); SODIUM LEVEL 137 MEQ/L (136-145); TOTAL PROTEIN 6.4 GM/DL (6.4-8.2); TROPONIN I 1.38 NG/ML (< 0.10)
[2017-07-15 22:44] LABS: CK-MB VALUE MASS 7.4 NG/ML (0.0-3.6); MB/CK RELATIVE INDEX 3.27 (< OR =4); THYROID STIMULATING HORMONE 0.561 uIU/ML (0.358-3.740)
[2017-07-15] MEDS ORDERED: HEPARIN DRIP 25,000 UNITS in APPROPRIATE DILUENT 1 EA IV (22:51)
[2017-07-15] MEDS ORDERED: HEPARIN SOD (PORCINE) 5000 UNITS/ML VIAL IV ×2 (23:00)
[2017-07-15] MEDS: HEPARIN DRIP 25,000 UNITS in APPROPRIATE DILUENT 1 EA IV (23:10)
[2017-07-15] MEDS ORDERED: CEFTRIAXONE SOD 1 GM in APPROPRIATE DILUENT 1 EA IV (23:15)
[2017-07-15 23:36] LABS: PARTIAL THROMBOPLASTIN TIME 26.9 SECONDS (26.8-37.9)
== END 2017-07-15 23:57 | disposition home or self-care (01) ==
LOC: M ED 23:57
DX: I21.4 Non-ST elevation (NSTEMI) myocardial infarction (principal); I50.9 Heart failure, unspecified; E11.9 Type 2 diabetes mellitus without complications; N18.9 Chronic kidney disease, unspecified; I48.91 Unspecified atrial fibrillation; F03.90 Unspecified dementia, unspecified severity, without behavioral disturbance, psychotic disturbance, mood disturbance, and anxiety; E03.9 Hypothyroidism, unspecified; Z79.899 Other long term (current) drug therapy; Z79.82 Long term (current) use of aspirin; Z79.890 Hormone replacement therapy; Z79.4 Long term (current) use of insulin; Z91.048 Other nonmedicinal substance allergy status
CPT/HCPCS: 71045